=== PATIENT | male | born 1965 | race Caucasian/White ===

== ENCOUNTER 2023-05-26 10:19 | Emergency (ER) | payer OTHER ==
[~2023-05-26] VITALS: Ht 172.7 cm; Wt 127.0 kg
[2023-05-26] MEDS ORDERED: BUPROPION XL450 MG (10:27)
[2023-05-26] MEDS ORDERED: LAMICTAL5 MG (10:27)
== END 2023-05-26 12:57 | disposition home or self-care (01) ==
LOC: ER 10:20
DX: L03.116 Cellulitis of left lower limb (principal)